=== PATIENT | female | born 1945 | race Caucasian/White ===

== ENCOUNTER 2020-03-05 07:24 | Outpatient (CLI) | payer MEDICARE, SELFPAY ==
--- NOTE | 2020-03-05 07:34 | MM_ITS ---
WS: [id number] BILATERAL DIGITAL SCREENING MAMMOGRAPHY WITH CAD CLINICAL INFORMATION: SCREENING HISTORY: Screening mammogram. Left breast soreness COMPARISON: TECHNIQUE: Bilateral CC and MLO views. FINDINGS: Scattered fibroglandular densities bilaterally. 11 mm increased asymmetric density mid depth right br east best seen on the CC view. RECOMMEND RIGHT DIAGNOSTIC MAMMOGRAPHY AND ULTRASOUND FOR FURTHER EVAL UATION. Left breast is unremarkable. Lucent centered calcifications. MM/[place] [id number] IMPRESSION: BI-RADS: 0-Incomplete: Need additional imaging evaluation FOLLOW UP: Need Additional Imaging
== END 2020-03-05 07:25 | disposition home or self-care (01) ==
PROVIDERS: PCP Internal Medicine; Visit Provider Internal Medicine
DX: Z12.31 Encounter for screening mammogram for malignant neoplasm of breast (principal); N64.89 Other specified disorders of breast
CPT/HCPCS: 77067

== ENCOUNTER 2020-03-24 14:24 | Outpatient (CLI) | payer MEDICARE, OTHER, SELFPAY ==
--- NOTE | 2020-03-24 14:34 | MM_ITS ---
WS: [id number] RIGHT DIGITAL MAMMOGRAPHY WITH CAD CLINICAL INFORMATION: ASYMMETRY COMPARISON: 03/05/2020 and 01/10/2019 TECHNIQUE: 3 views of the right breast were obtained. FINDINGS: Scattered fibroglandular densities of the right breast. Again seen is the 11 mm asymmetric density mi d depth right breast best seen on the cc view. Ultrasound is pending. ULTRASOUND BREAST RIGHT TECHNIQUE: Ultrasound right breast focused area of concern. CLINICAL INFORMATION: ASYMMETRY COMPARISON: None. FINDINGS: Ultrasound right breast the 12:00 position 3 cm from the nipple. There is a hypoechoic solid appearin g lesion which has a suspicious appearance. THIS MEASURES APPROXIMATELY 9.9 X 9.9 X 1.7 CM AND RECOMMEND FURTH ER EVALUATION WITH ULTRASOUND-GUIDED BIOPSY. Ultrasound right axilla. A few normal size lymph nodes. The largest lymph node measures 1.7 x 0.8 x 1 .3cm with normal cortex and preserved echogenic fatty hilum. No suspicious lymph nodes. MM/[place] [id number] IMPRESSION: BI-RADS: 4-Suspicious Finding-Biopsy Should Be Considered FOLLOW UP: US Guided Biopsy Recommended
== END 2020-03-24 14:25 | disposition home or self-care (01) ==
LOC: RADSHAW 14:24
PROVIDERS: PCP Internal Medicine; Visit Provider Internal Medicine
DX: N64.89 Other specified disorders of breast (principal)
CPT/HCPCS: 76642; 77065

== ENCOUNTER 2020-04-03 11:50 | Outpatient (CLI) | payer MEDICARE, OTHER, SELFPAY ==
--- NOTE | 2020-04-03 11:59 | US_ITS ---
WS: [id number] ULTRASOUND-GUIDED RIGHT BREAST BIOPSY HISTORY: ABNORMAL MAMMOGRAM COMPARISON: 03/24/2020 Procedure, risks and complications are explained to the patient. Medications are reviewed. Consent is obtained. The mass in the RIGHT breast is localized with ultrasound. Mass localized to 12:00, 3 cm from the nip ple. Skin is cleansed with ChloraPrep and anesthetized with 1% buffered lidocaine. Small dermatome is made. Under sterile conditions mass is biopsied with a 14-gauge Achieve needle. Multiple core biopsi es are performed. Material placed in formalin and sent to pathology for review. No complications enco untered. Breast tissue marker ([employer] ultrasound enhanced ribbon): Single. Patient left the radiology suite with no complications. Patient is instructed to return [place] [facility] with any concerns. US/[place] [id number] IMPRESSION: 1. Uncomplicated core needle biopsy RIGHT breast, 12:00. PATHOLOGY: Invasive intramammary carcinoma. Additional ancillary studies are be ing performed. Final diagnosis pending. RECOMMENDATION: Follow-up with Dr. Pardo, oncology and breast surgeon.
== END 2020-04-03 11:51 | disposition home or self-care (01) ==
LOC: RAD 11:55
PROVIDERS: PCP Internal Medicine; Visit Provider Internal Medicine
DX: R92.8 Other abnormal and inconclusive findings on diagnostic imaging of breast (principal); C50.811 Malignant neoplasm of overlapping sites of right female breast
CPT/HCPCS: 19083; 88305

== ENCOUNTER → 2020-04-20 08:15 | Outpatient (BNVA) | payer MEDICARE, OTHER, SELFPAY | PROVIDERS: PCP Internal Medicine; Visit Provider Surgery | DX: Z11.59 Encounter for screening for other viral diseases (principal) | CPT/HCPCS: 87635 ==

== ENCOUNTER 2020-04-24 07:28 | Day surgery (SDC) | payer MEDICARE, OTHER, SELFPAY ==
[2020-04-23 08:36] VITALS: BMI 42.3
--- NOTE | 2020-04-24 07:30 | NM_ITS ---
WS: [id number] SENTINEL NODE TECHNIQUE: Right breast sentinel node injection CLINICAL INFORMATION: BREAST LUMPECTOMY COMPARISON: None. PROCEDURE: The procedure including risks, benefits, and complications were discussed; the patient agr eed to proceed. Patient was prepped and draped in usual sterile fashion. Subsequently, 1% lidocaine p reservative-free was administered at the 12:00, 3:00, 6:00, and 9:00 o'clock positions for local anes thesia. Subsequently, 4 aliquots of filtered technetium 99m sulfur colloid was injected into the subc utaneous soft tissues. A total dose of 1.08 mCi was administered. Patient tolerated the procedure well with no immediate complications. RI/RI sentinel node inject [id number] IMPRESSION: Uncomplicated right breast sentinel node injection with a total dose of 1.08 mC i.
--- NOTE | 2020-04-24 07:51 | PC.NURSE ---
pt stated david hose and scd hurt her legs. foot pumps used. dr Giang aware
--- NOTE | 2020-04-24 08:06 | ANES.PREANE2 ---
Pre-Anesthetic Assessment Pre-Anesthetic Assessment: Height/Weight: Height 1.7 m Weight 122.47 kg Proposed Procedure: Operation Date: 04/24/20 10:00 Proposed Procedures p Sentinal Lymph Node Biopsy(Right) - Everton Giang MD Was Beta Nikki taken within 24 hours: Yes Last intake: Intake Last Liquid Date 04/24/20 Last Liquid Time 23:00 Last Solid Date 04/23/20 Last Solid Time 23:00 Social: Social History: No alcohol and No tobacco Exam: Pre-Anes Outpt Exam: alert, oriented x 3, clear to auscultation bilaterally and regular rate & rhythm Airway: Submandibular: WNL Cervical ROM: WNL MP: 2 Dentition: Full History/ROS: No significant history except as noted and No significant complaints Pulmonary: Pulmonary: None reported CV/HEM: CV/HEM: HTN : : None reported Hepatic: Hepatic: None reported GI: GI: None reported Metabolic: Metabolic: DM and Morbid obesity Musc/skel: Musc/skel: OA/DJD Anesthetic Plan: ASA status: 2 Anesthesia: Anesthesia Evaluation and MAC Risk of > 500 ml blood loss (7ml/kg in children): No Data Anesthesia Cardiac Studies: No Data to Display
[2020-04-24 08:07] LABS: Glucose Point of Care 105 mg/dL (70-110)
--- NOTE | 2020-04-24 08:14 | W.PM.OPSUD ---
Surgery/Procedure H&P Update DATE OF PROCEDURE: April 24, 2020 DATE H&P PERFORMED: 04/15/20 H&P UPDATE INFORMATION: No changes to prior documentation PREOP DIAGNOSIS: Right breast cancer. PLANNED PROCEDURE: Operation Date: 04/24/20 10:00 Proposed Procedures p Sentinal Lymph Node Biopsy(Right) - Everton Giang MD Right breast lumpectomy
[2020-04-24 09:30] VITALS: BP 208/108; PULSE 94; RESP 18; TEMP 37.2; O2SAT 94
--- NOTE | 2020-04-24 09:50 | P.OP_ITS ---
Operative Report Date of procedure: April 24, 2020 Pre-op Diagnosis: Right breast cancer. Post-op diagnosis: same Procedure Done: 1. Right axillary sentinel lymph node biopsy. 2. Right breast lumpectomy. Specimens removed/disposition: 1. Right axillary sentinel lymph node(s). 2. Right breast lumpectomy specimen. Long suture anteriorly, short suture medially. Surgeon: Everton Giang Anesthesia: MAC Estimated blood loss (mL): 5 Complications: None. Condition: stable Disposition: same day Procedure: The patient was brought to the operating room and was placed in a supine position on the operating room table. The patient had undergone radioactive tracer injection in radiology preoperatively. A monitored anesthetic was induced. The right axilla and breast prepped and draped in a sterile fashion. The gamma probe was used to find the hot spot in the axilla inferiorly and somewhat anteriorly. A combination of 1% lidocaine and 0.5% bupivacaine with 1- 200,000 parts epinephrine was used for local anesthesia throughout the procedures. A curvilinear incision was carried out over the hot spot of the axilla. Cautery and blunt dissection were used to traverse the subcutaneous tissue and the axilla was entered. Using a combination of inspection and the gamma probe, the hot lymph node was found and was completely removed using blunt dissection and cautery. There may have been more than 1 small lymph node matted together in the specimen that was excised. The lymph node package registered counts of 13 on the field. Further inspection of the axilla with the gamma probe revealed counts only associated with the apparent lymphatic channels that came up to the lymph node package that was removed. No other lymph nodes were palpated or identified with the gamma probe. The wound was irrigated with saline. A suture of 3-0 Vicryl was used to bring the deeper tissue together and the skin was approximated using a running subcuticular suture of 4-0 Vicryl. Attention was then directed to the right breast where the patient had a small palpable mass at the 11:30 axis about 3 cm from the edge of the areola. A transverse incision was made and a combination of cautery and sharp dissection were used to remove the mass with surrounding breast tissue. A long suture was placed on the specimen anteriorly and a short suture was placed medially for pat hologic orientation. The wound was irrigated with saline and some small bleeding points were controlled with cautery. Benzoin and Steri-Strips were placed over the wounds and sterile bandages follow ed. The patient was taken to the outpatient recovery area in stable condition postoperatively.
[2020-04-24 10:11] VITALS: BP 99/84; PULSE 81; RESP 18; TEMP 36.4; O2SAT 94
[2020-04-24 10:14] VITALS: BP 117/62; PULSE 73; RESP 18; O2SAT 95
[2020-04-24] MEDS: sodium chloride 0.9% 1,000 ML 30 ML IV (10:15)
[2020-04-24] MEDS: HYDROcodone-acetaminophen 5-325 mg Tablet 1 TAB PO (10:56)
--- NOTE | 2020-04-24 11:05 | ANE.PACU2 ---
Inpatient post-anesthesia follow up: Airway intact: Yes Vital signs: Temperature 97.5 F Pulse Rate 73 Respiratory Rate 18 Blood Pressure 117/62 Pulse Oximetry 95 Oxygen Delivery Me thod Room Air Oxygen Flow Rate Fraction of Inspir ed Oxygen Hydration adequate: Yes Nausea and vomiting: No Pain level: 1 Mental status: Baseline
== END 2020-04-24 11:05 | disposition home or self-care (01) ==
PROVIDERS: PCP Internal Medicine; Visit Provider Surgery
PROC: (CPT 19301; principal; 2020-04-24 10:00)
PROC: (CPT 19301; 2020-04-24 10:00)
DX: C50.911 Malignant neoplasm of unspecified site of right female breast (principal); I10 Essential (primary) hypertension; E11.9 Type 2 diabetes mellitus without complications; E66.01 Morbid (severe) obesity due to excess calories; Z68.41 Body mass index [BMI] 40.0-44.9, adult; M19.90 Unspecified osteoarthritis, unspecified site
CPT/HCPCS: 19301; 38525; 12345; 36416; 38792; 82962; 88305; A9541; J0690; J2250; J2405; J2704; J3010; J3490; J7030

== ENCOUNTER 2020-05-12 12:58 | Outpatient (CLI) | payer MEDICARE, OTHER, SELFPAY ==
--- NOTE | 2020-05-12 18:30 | ONC CON_ITS ---
Dr. Dobbins New Patient Note Patient: Darby Rajan Unit #: [id number]: 1945 Dicatated By: Carlos Dobbins M.D.Date of Visit: May 12, 2020 Onc MED New Patient/Consult Referring Physician: Dr. Everton Giang M.D. Chief Complaint: Breast cancer. 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 This patient has hypertension and type 2 diabetes. She has severe degenerative arthritis of her knees. She had a screening mammogram on 03/05/2020. At that time she was having some sharp pain in the left breast. The mammogram was BI-RADS 0 with evidence of an 11 mm asymmetric density in the mid depth right breast, increased compared to a prior study from January 2019. Diagnostic right breast mammogram and ultrasound on 03/24/2020 was BI-RADS 4, suspicious. Ultrasound findings included a hypoechoic, solid-appearing lesion at the 12 o'clock position measuring 9.9 x 9.9 x 1.7 cm. A few normal-sized lymph nodes were noted in the right axilla, the largest measuring 1.7 x 0.8 x 1.3 cm with normal cortex and preserved echogenic fatty hilum. There are no suspicious lymph nodes identified. Ultrasound-guided core needle biopsy of the right breast mass on 04/03/2020 showed grade 3 invasive ductal carcinoma. The breast prognostic profile showed ER positive at 90% and MI positive at 90%. The tumor is negative for overexpression of HER-2/brianna, 2+ by IHC and amplification ratio by FISH of 1.3 with 2.9 HER-2 copies/cell. The Ki-67 was unfavorable at 45%. On 04/24/2020 she underwent right breast lumpectomy with axillary sentinel lymph node biopsy. Pathology showed a single focus of grade 3 invasive ductal carcinoma measuring 1.5 cm in maximum dimension. The margins were uninvolved with the closest being the posterior margin at 0.4 cm. Pathologic staging was pT1c, pN0. She is seen now for further management. She has been feeling pretty good generally. She does have limited activity due to her knee pain, and she also complained that she feels tired because the knee pain interferes with her sleep at night. Her ECOG score is 1. She has good appetite, and her weight is stable. She does not have fever or night sweats. Recently she has been having some hot flashes. She is sometimes short of breath with activity. She has just occasional cough. She does not complain of chest pain. She has a longstanding history of nausea, typically postprandial. She sometimes has acid reflux. Recently she has had quite a bit of diarrhea, that she attributes to being nervous. She sometimes has pain in the lower abdomen. Her bladder function has been okay. She does not have any other joint or bone pain. She sometimes has headache. She has no focal neurologic symptoms. Past Medical History: Her medical history includes anxiety, degenerative arthritis, hypertension, type II diabetes, and vitamin D deficiency. Past Surgical History: She underwent ultrasound guided core needle biopsy of right breast mass on 04/03/2020. She underwent right breast lumpectomy with axillary sentinel lymph node biopsy on 04/24/2020. Her other surgical/procedural history includes appendectomy, arthroscopic left knee surgery, hysterectomy/bilateral salpingectomy-oophorectomy, rectocele repair, right breast lumpectomy for benign disease, laparoscopic lysis of adhesions and repair of incisional hernia with mesh in 2018, exploratory laparotomy with adhesiolysis, segmental small bowel resection, and incisional hernia repair in 2005, and lysis of adhesion/partial small bowel resection in 1989. Medications: Aspirin 1 Tablet (of 81 mg) Tablet, enteric coated Oral daily, Losartan Potassium 1 Tablet (of 50 mg) Oral daily, Meloxicam 1 Tablet (of 15 mg) Oral daily, metFORMIN HCl 1 Tablet (of 500 mg) Oral b.i.d., Triamterene-HCTZ 1 Tablet (of 37.5-25 mg) Oral daily, Vitamin D3 1 Tablet (of 25 mcg) Oral daily Allergies: Iodine and Shellfish. Social History: Ms. Rajan is and she is retired. She is a non-smoker. She does not drink alcohol. Family History: Father of heart disease at age 72. Mother at age 87 with complications of dementia. One brother and one sister are in good health. There is no history of breast cancer or ovarian cancer in the family. Review Of Symptoms: Constitutional - She has been feeling pretty good generally, though she does complain that she is tired because she does not sleep well. Her appetite is good and her weight is stable. She has not had fever or night sweats. Recently she has had some hot flashes. ECOG score is 1, Eyes - No recent change in vision, but she is being followed for a cataract in her right eye, ENMT - No hearing loss or tinnitus. She has sinus drainage off and on. No mouth sores. No sore throat or difficulty swallowing, Hematologic/Lymphatic - She has some bruising, Respiratory - She is sometimes short of breath with activity. She has just occasional cough. No pleuritic pain or hemoptysis, Cardiovascular - No angina pain. No palpitations, Gastrointestinal - She has a longstanding history of nausea, mainly after eating. She sometimes has acid reflux. Recently she has had quite a bit of diarrhea, attributable to being nervous. She sometimes has pain in the lower abdomen. No blood in the stool or black stools, Genitourinary (F) - No dysuria or hematuria. No urinary frequency. No urgency or incontinence, Musculoskeletal - She has chronic pain in her knees, which significantly limits her activity, Integumentary - No skin rash, Neurologic - She sometimes has headache. No dizziness. No numbness or tingling. No other focal neurologic symptoms, Psychiatric - She has having some anxiety. She does not sleep well due to knee pain. Vital Signs: Performed on May 12, 2020 14:14: 0, 42.85 (HIGH), 2.31 sq.m, 67.00 in, 95 % (LOW), 84 /min, 24 /min, 168/86 mm(hg) (HIGH), 99.0 F (HIGH), and 273.6 lbs (HIGH). Physical Examination: Constitutional - She appears to be in reasonably good general health, Eyes - Sclerae nonicteric. Conjunctivae clear, ENMT - No lesions noted in the oral cavity, Neck - No mass or thyromegaly, Hematologic/Lymphatic - No cervical or clavicular adenopathy, Respiratory - Lungs are clear with good air movement bilaterally, Cardiovascular - Heart rhythm is regular. There is no murmur, gallop, or rub noted, Breasts - There is slight induration at the lumpectomy site in the upper right breast. There is no mass palpable. The left breast shows no mass. There is no axillary adenopathy noted, Abdomen - Distended. Liver and spleen are not enlarged. There is no abdominal mass or ascites noted and there is no inguinal adenopathy, Back/Spine - No spine or CVA tenderness noted, Extremities - Slight edema. Dorsalis pedis pulses are palpable bilaterally, Integumentary - No rashes. No suspicious skin lesions noted, Neurologic - No focal neurologic deficits noted. Impression: 1. Patient with grade 3 infiltrating ductal carcinoma of the right breast, stage IB (T1c, pN0, M0), ER/MI positive and HER-2/brianna negative. 2. She underwent right breast lumpectomy sentinel lymph node biopsy on 04/24/2020. Surgical margins were uninvolved. Her other medical illnesses include: 3. Hypertension. 4. Type 2 diabetes. 5. Degenerative arthritis. 6. Vitamin D deficiency. 7. Chronic anxiety. Plan: The pathology findings were reviewed with the patient and we discussed the clinic complications. She has early stage infiltrating ductal carcinoma of the right breast. She is aware that she will need to undergo radiation to the right breast to complete her local treatment. We discussed the fact that she also will require systemic adjuvant therapy, which will include adjuvant hormonal therapy. With a grade 3, T1c primary tumor she also may potentially benefit with adjuvant chemotherapy. As such, I will request further evaluation with Oncotype DX. I will plan further discussion of systemic adjuvant therapy when those results are available. Signed By: Carlos Dobbins M.D. <<Signature on File>>
== END 2020-05-12 12:59 | disposition home or self-care (01) ==
LOC: ONCMED 13:06
PROVIDERS: PCP Internal Medicine; Visit Provider Internal Medicine Medical Oncology
DX: C50.811 Malignant neoplasm of overlapping sites of right female breast (principal); Z17.0 Estrogen receptor positive status [ER+]; I10 Essential (primary) hypertension; E11.9 Type 2 diabetes mellitus without complications; M19.90 Unspecified osteoarthritis, unspecified site; E55.9 Vitamin D deficiency, unspecified; F41.9 Anxiety disorder, unspecified; Z79.818 Long term (current) use of other agents affecting estrogen receptors and estrogen levels; Z79.899 Other long term (current) drug therapy
CPT/HCPCS: 99205

== ENCOUNTER 2020-05-26 16:09 | Outpatient (CLI) | payer MEDICARE, OTHER, SELFPAY ==
--- NOTE | 2020-05-26 18:18 | ONC FU_ITS ---
Dr. Dobbins Patient Follow-Up Note Patient: Darby Rajan Unit #: [id number]: 1945 Dicatated By: Carlos Dobbins M.D.Date of Visit:May 26, 2020 Onc Med Follow-up/Prog Note Chief Complaint: Breast cancer. History of Present Illness: This is a 74 year-old woman with grade 3 infiltrating ductal carcinoma of the right breast, stage IB (T1c, pN0, M0), ER/NE positive and HER-2/brianna negative. She had a screening mammogram on 03/05/2020. At that time she was having some sharp pain in the left breast. The mammogram was BI-RADS 0 with evidence of an 11 mm asymmetric density in the mid depth right breast, increased compared to a prior study from January 2019. Diagnostic right breast mammogram and ultrasound on 03/24/2020 was BI-RADS 4, suspicious. Ultrasound findings included a hypoechoic, solid-appearing lesion at the 12 o'clock position measuring 9.9 x 9.9 x 1.7 cm. A few normal-sized lymph nodes were noted in the right axilla, the largest measuring 1.7 x 0.8 x 1.3 cm with normal cortex and preserved echogenic fatty hilum. There are no suspicious lymph nodes identified. Ultrasound-guided core needle biopsy of the right breast mass on 04/03/2020 showed grade 3 invasive ductal carcinoma. The breast prognostic profile showed ER positive at 90% and NE positive at 90%. The tumor is negative for overexpression of HER-2/brianna, 2+ by IHC and amplification ratio by FISH of 1.3 with 2.9 HER-2 copies/cell. The Ki-67 was unfavorable at 45%. On 04/24/2020 she underwent right breast lumpectomy with axillary sentinel lymph node biopsy. Pathology showed a single focus of grade 3 invasive ductal carcinoma measuring 1.5 cm in maximum dimension. The margins were uninvolved with the closest being the posterior margin at 0.4 cm. Pathologic staging was pT1c, pN0. I had seen her initially on 05/12/2020. With an ER/NE positive T1c primary tumor and negative axillary sentinel lymph node biopsy, I had recommended further evaluation with Oncotype DX to direct recommendations for her systemic adjuvant therapy. Her other medical illnesses include hypertension and type 2 diabetes. She has severe degenerative arthritis of her knees. She has a history of vitamin D deficiency, and she also has chronic anxiety. She is a non-smoker. She returns today to discuss the results of the Oncotype DX. It showed a recurrence score of 34, which is high risk category, corresponding to a 22% risk of distant recurrence at 9 years with adjuvant hormonal therapy alone. The estimated absolute benefit with addition of adjuvant chemotherapy was greater than 15%. Medications: Aspirin 1 Tablet (of 81 mg) Tablet, enteric coated Oral daily, Losartan Potassium 1 Tablet (of 50 mg) Oral daily, Meloxicam 1 Tablet (of 15 mg) Oral daily, metFORMIN HCl 1 Tablet (of 500 mg) Oral b.i.d., traMADol HCl 1 Tablet (of 50 mg) Oral daily, Triamterene-HCTZ 1 Tablet (of 37.5-25 mg) Oral daily, Vitamin D3 1 Tablet (of 25 mcg) Oral daily Allergies: Iodine and Shellfish. Vital Signs: Performed on May 26, 2020 16:35 Height - 67.00 in Weight - 277.0 lbs (HIGH) BSA - 2.32 sq.m BMI - 43.38 (HIGH) Temperature - 98.6 F Pulse - 71 /min Respiration - 24 /min BP - 144/88 mm(hg) (HIGH) O2 Sat - 99 % Pain - 6 Impression: 1. Patient with grade 3 infiltrating ductal carcinoma of the right breast, stage IB (T1c, pN0, M0), ER/NE positive and HER-2/brianna negative. Her Oncotype DX was high risk, with recurrence score of 34 corresponding to a 22% risk of distant recurrence at 9 years with adjuvant hormonal therapy alone. The absolute benefit with addition of adjuvant chemotherapy is estimated to be greater than 15%. 2. She underwent right breast lumpectomy sentinel lymph node biopsy on 04/24/2020. Surgical margins were uninvolved. Her other medical illnesses include: 3. Hypertension. 4. Type 2 diabetes. 5. Degenerative arthritis. 6. Vitamin D deficiency. 7. Chronic anxiety. Plan: The Oncotype DX results were reviewed with the patient and her . We discussed the clinic complications. She is in a high risk category with estimated 22% risk of distant recurrence at 9 years with adjuvant hormonal therapy alone. In this situation adjuvant chemotherapy is recommended, as it is predicted to have an absolute benefit of greater than 15%. With her having diabetes and already having some neuropathy symptoms, I will recommend treatment with 4 cycles of Adriamycin/cyclophosphamide as opposed to the cyclophosphamide/Taxotere regimen. I reviewed anticipated side effects which may include nausea/vomiting, alopecia, fatigue, low blood counts, and cardiomyopathy, among others. She is going to discuss this further with her family, and she will make a decision about adjuvant chemotherapy by next week. If she does opt for treatment, she will need to undergo placement of Port-A-Cath venous access device, and she will need pretreatment cardiac screen. If she decides not to take chemotherapy, she can proceed with radiation oncology consultation. [id number] time with patient was more than 30 minutes, greater than 50% spent in counseling/discussion. Signed By: Carlos Dobbins M.D. <<Signature on File>>
== END 2020-05-26 16:10 | disposition home or self-care (01) ==
LOC: ONCMED 16:12
PROVIDERS: PCP Internal Medicine; Visit Provider Internal Medicine Medical Oncology
DX: C50.811 Malignant neoplasm of overlapping sites of right female breast (principal); Z17.0 Estrogen receptor positive status [ER+]; I10 Essential (primary) hypertension; E11.9 Type 2 diabetes mellitus without complications; M19.90 Unspecified osteoarthritis, unspecified site; E55.9 Vitamin D deficiency, unspecified; F41.9 Anxiety disorder, unspecified; Z79.818 Long term (current) use of other agents affecting estrogen receptors and estrogen levels; Z79.899 Other long term (current) drug therapy
CPT/HCPCS: 99214

== ENCOUNTER 2020-07-03 05:45 | Outpatient (RCR) | payer MEDICARE, OTHER, SELFPAY ==
--- NOTE | 2020-06-11 09:59 | N.ONRAD NP_ITS ---
Radiation Oncology Consult Patient: Darby Rajan MR#: [id number] : 1945 Attending Physician: Jonathan Palma M.D. Date of Service: 06/11/2020 Darby Rajan was seen in consultation this morning for evaluation regarding potential breast radiotherapy for the management of her early stage breast cancer. She presented for routine screening mammography ordered on March 05, 2020. A 1.1 cm asymmetric density was noted in the right breast. A diagnostic mammogram pleated on March 24, 2020 confirmed the asymmetric density right breast. Ultrasonography revealed within the right breast at the 12 o'clock position, 3 cm from the nipple, a 9 mm x 9 mm x 1.7 cm hypoechoic lesion. An ultrasound-guided biopsy obtained on April 03, 2020 diagnosed a need III invasive ductal carcinoma. Immunohistochemical stains were positive for estrogen receptor (90%) and progesterone receptor (90%) while negative for HER-2. The KI-67 was 45%. A right partial mastectomy with sentinel lymph node biopsy was performed by Delgado Giang M.D. on April 24, 2020. A 1.5 cm grade 3 ductal carcinoma was present. A sentinel lymph node biopsy harvested four lymph nodes that were negative for malignancy. All surgical margins were negative. The OncotypeDX Recurrence Score of the tumor was 34. The patient presents for discussion regarding adjuvant breast radiotherapy. The patient's past medical history is significant for anxiety, diverticulosis, hemorrhoids, hypercholesterolemia, hypertension, nmr-uxijxwj-[id number] diabetes mellitus, osteoarthritis, and vitamin D deficiency. Her past surgical history includes appendectomy, arthroscopy (left knee), breast biopsy (right), herniorrhaphy, laparoscopic adhesiolysis, partial mastectomy with sentinel lymph node biopsy (right), rectocele repair, small bowel resection, and total abdominal hysterectomy with bilateral salpingo-oophorectomy. Her obstetrical history is . Menses began between ages 12 and menopause following hysterectomy at the age of 41. I have reviewed the patient's medication profile which is available in the electronic medical record. She described a contrast dye allergy (iodine) and shellfish. The patient's family history was unremarkable for breast cancer. The patient was unaccompanied to this consultation. She denied a tobacco habit and disavowed alcohol intake. On review of systems, she did not report any constitutional complaints including fevers of unknown origin or unintentional weight loss. There were no head neck complaints including diplopia, tinnitus, epistaxis, or dysphagia. She did not report breast complaints such as masses or nipple discharge nor any enlarged lymph nodes of the neck, armpit, or groin. She denied any cardiopulmonary symptoms such as angina, cough, or palpitations. On gastrointestinal review, she reported dyspepsia but no nausea or diarrhea. There were no genitourinary complaints such as dysuria or hematuria. She did not report any musculoskeletal complaints including bone pain or muscle weakness. There were no neurological symptoms such as headaches, paresthesias, or seizures. On physical examination, the patient has an ECOG performance status of 2. Her weight was 276 lbs. The temperature was 98.4???F. The blood pressure was 151/80 mmHg. The pulse was 76 bpm and the respiratory rate of was 20. The head was normocephalic and atraumatic. Ophthalmoscopy identified bilateral red reflexes with sharp fundi visualized. Otoscopy revealed bilateral light reflexes upon tympanic membranes. Rhinoscopy exhibited non-nflamed turbinates. The oral cavity had moist mucous membranes and no oropharyngeal exudate was present. Poor dentition was noted. There was no cervical adenopathy or thyromegaly. No dominant breast masses were palpated. A scar was present in the upper right breast. There was no palpable axillary adenopathy. Normal fremitus was noted with resonance to percussion elicited. Bronchovesicular breath sounds were auscultated in the posterior lung starks. Cardiac sounds were regular in rate and rhythm. No auscultated gallops or murmurs present. No JVD noted. The abdomen had active bowel sounds. No tenderness to palpation. No evidence of organomegaly. No muscle weakness upon testing. No tenderness to deep palpation along the axial skeleton. Cranial nerves II through XII were intact. No sensory deficits. Hyporeflexia noted. Gait was slow secondary to bilateral OA of the knees requiring a cane. In summary, the patient presented for routine screening mammography ordered on March 05, 2020. A 1.1 cm asymmetric density was noted in the right breast. A diagnostic mammogram pleated on March 24, 2020 confirmed the asymmetric density right breast. Ultrasonography revealed within the right breast at the 12 o'clock position, 3 cm from the nipple, a 9 mm x 9 mm x 1.7 cm hypoechoic lesion. An ultrasound-guided biopsy obtained on April 03, 2020 diagnosed a need III invasive ductal carcinoma. Immunohistochemical stains were positive for estrogen receptor (90%) and progesterone receptor (90%) while negative for HER-2. The KI-67 was 45%. A right partial mastectomy with sentinel lymph node biopsy was performed by Delgado Giang M.D. on April 24, 2020. A 1.5 cm grade 3 ductal carcinoma was present. A sentinel lymph node biopsy harvested four lymph nodes that were negative for malignancy. All surgical margins were negative. The OncotypeDX Recurrence Score of the tumor was 34. The patient presents for discussion regarding adjuvant breast radiotherapy. I reviewed with the patient her AJCC pathological stage IA (T1cN0) breast cancer. I also discussed the classic study by the NSABP comparing mastectomy, lumpectomy, and lumpectomy with radiotherapy and the Early Breast Cancer Trial[employer] meta-analysis. She is aware that the addition of radiotherapy to lumpectomy provides improvement in local control and overall survival. I anticipate a 3 week course of hypofractionated radiotherapy which will be implemented following CT radiotherapy treatment planning. Toxicities of breast radiotherapy were also addressed. The patient has verbalized understanding and would like to proceed as recommended. Signed by: Dr. Jonathan Palma 06/11/2020 9:58:28 AM
--- NOTE | 2020-06-12 | CT_ITS ---
Radiation Therapy Planning CT images; total exam DLP: 1008.48 mGy-cm MTDD
--- NOTE | 2020-06-16 11:05 | ONCRAD TMN_ITS ---
Radiation Oncology Weekly Treatment Management Patient: Darby Rajan MR#: [id number] : 1945 Attending Physician: Jonathan Palma M.D. Date of Service: 06/16/2020 Referring Physician(s): Dr. Everton Giang Darby Rajan is a 74 year-old white female diagnosed with a pathological stage IA (T1cN0) invasive ductal carcinoma (colloid) of the central portion of the right breast. Immunohistochemical staining were positive for estrogen receptor and progesterone receptor while negative for HER2. She has received 2.7 Gy of a prescribed 40 Gy delivered with a 3D conformal radiotherapy plan utilizing opposed tangential portal starks with a zpnle-dx-akhuw treatment technique. Upon review of systems, she denied any breast complaints to radiotherapy. On physical examination, the patient weighed 241 lbs. Her temperature was 96.3 ???F with a blood pressure of 127/91 mmHg. Her pulse was 90 bpm and her respiratory rate was 18. There was no erythema within the treatment starks of the right breast. Continue hypofractionated breast radiotherapy as planned. Signed by: Dr. Jonathan Palma 06/16/2020 11:03:34 AM
--- NOTE | 2020-06-24 10:48 | ONCRAD TMN_ITS ---
Radiation Oncology Weekly Treatment Management Patient: Darby Rajan MR#: [id number] : 1945 Attending Physician: Jonathan Palma M.D. Date of Service: 06/24/2020 Referring Physician: Dr. Everton Giang Darby Rajan is a 74 year-old white female diagnosed with a pathological stage IA (T1cN0) invasive ductal carcinoma (colloid) of the central portion of the right breast. Immunohistochemical staining were positive for estrogen receptor and progesterone receptor while negative for HER2. She has received 16 Gy of a prescribed 40 Gy delivered with a 3D conformal radiotherapy plan utilizing opposed tangential portal starks with a ubzux-us-auakp treatment technique. Upon review of systems, she denied any breast complaints to radiotherapy. On physical examination, the patient weighed 276 lbs. Her temperature was 98.8 ???F with a blood pressure of 138/79 mmHg. Her pulse was 79 bpm and her respiratory rate was 20. There was no erythema within the treatment starks of the right breast. Continue hypofractionated breast radiotherapy as prescribed. Signed by: Dr. Jonathan Palma 06/24/2020 10:46:17 AM
--- NOTE | 2020-06-30 11:25 | ONCRAD TMN_ITS ---
Radiation Oncology Weekly Treatment Management Patient: Darby Rajan MR#: [id number] : 1945 Attending Physician: Jonathan Palma M.D. Date of Service: 06/30/2020 Referring Physician: Dr. Everton Giang Darby Rajan is a 74 year-old white female diagnosed with a pathological stage IA (T1cN0) invasive ductal carcinoma (colloid) of the central portion of the right breast. Immunohistochemical staining were positive for estrogen receptor and progesterone receptor while negative for HER2. She has received 21.3 Gy of a prescribed 40 Gy delivered with a 3D conformal radiotherapy plan utilizing opposed tangential portal starks with a ijqqf-kq-kdtvf treatment technique. Upon review of systems, she denied any breast complaints to radiotherapy. On physical examination, the patient weighed 279 lbs. Her temperature was 97.9 ???F with a blood pressure of 185/89 mmHg. Her pulse was 72 bpm and her respiratory rate was 20. There was no erythema within the treatment starks of the right breast. Continue hypofractionated right breast radiotherapy as planned. Signed by: Dr. Jonathan Palma 06/30/2020 11:24:37 AM
== END 2020-07-03 23:59 | disposition home or self-care (01) ==
LOC: ONCMED 05:45
PROVIDERS: PCP Internal Medicine; Visit Provider Radiology Radiation Oncology
DX: Z51.0 Encounter for antineoplastic radiation therapy (principal); C50.111 Malignant neoplasm of central portion of right female breast; Z17.0 Estrogen receptor positive status [ER+]; F41.9 Anxiety disorder, unspecified; I10 Essential (primary) hypertension; E11.9 Type 2 diabetes mellitus without complications; M19.90 Unspecified osteoarthritis, unspecified site; E55.9 Vitamin D deficiency, unspecified; E78.5 Hyperlipidemia, unspecified
CPT/HCPCS: 77280; 77295; 77300; 77334; 77336; 77387; 77412; 99204

== ENCOUNTER 2020-07-25 06:02 | Outpatient (RCR) | payer MEDICARE, OTHER, SELFPAY ==
--- NOTE | 2020-07-07 10:55 | ONCRAD TMN_ITS ---
Radiation OncologyTreatment Management Note Patient Name: Darby Rajan Date of : 1945 Date of Service: 07/07/2020 Attending Physician: Jonathan Palma M.D. Darby Rajan is a 74 year-old white female diagnosed with a pathological stage IA (T1cN0) invasive ductal carcinoma (colloid) of the central portion of the right breast. Immunohistochemical staining were positive for estrogen receptor and progesterone receptor while negative for HER2. She has received 32 Gy of a prescribed 40 Gy delivered with a 3D conformal radiotherapy plan utilizing opposed tangential portal starks with a vrthi-ck-gcgkq treatment technique. Upon review of systems, she reported burning within the right armpit. On physical examination, the patient weighed 279 lbs. Her temperature was 97.9 ???F with a blood pressure of 185/89 mmHg. Her pulse was 72 bpm and her respiratory rate was 20. There was a grade I dermatitis within the treatment starks of the right breast. Continue hypofractionated right breast radiotherapy as prescribed. I would recommend Solarcaine to the right axilla. Signed by: Dr. Jonathan Palma 07/07/2020 10:53:20 AM
--- NOTE | 2020-07-20 09:48 | ONC FU_ITS ---
Dr. Dobbins Patient Follow-Up Note Patient: Darby Rajan Unit #: [id number]: 1945 Dicatated By: Carlos Dobbins M.D.Date of Visit:Jul 17, 2020 Onc Med Follow-up/Prog Note Chief Complaint: Breast cancer. History of Present Illness: This is a 75 year-old woman with grade 3 infiltrating ductal carcinoma of the right breast, stage IB (T1c, pN0, M0), ER/IN positive and HER-2/brianna negative. She had a screening mammogram on 03/05/2020. At that time she was having some sharp pain in the left breast. The mammogram was BI-RADS 0 with evidence of an 11 mm asymmetric density in the mid depth right breast, increased compared to a prior study from January 2019. Diagnostic right breast mammogram and ultrasound on 03/24/2020 was BI-RADS 4, suspicious. Ultrasound findings included a hypoechoic, solid-appearing lesion at the 12 o'clock position measuring 9.9 x 9.9 x 1.7 cm. A few normal-sized lymph nodes were noted in the right axilla, the largest measuring 1.7 x 0.8 x 1.3 cm with normal cortex and preserved echogenic fatty hilum. There are no suspicious lymph nodes identified. Ultrasound-guided core needle biopsy of the right breast mass on 04/03/2020 showed grade 3 invasive ductal carcinoma. The breast prognostic profile showed ER positive at 90% and IN positive at 90%. The tumor is negative for overexpression of HER-2/brianna, 2+ by IHC and amplification ratio by FISH of 1.3 with 2.9 HER-2 copies/cell. The Ki-67 was unfavorable at 45%. On 04/24/2020 she underwent right breast lumpectomy with axillary sentinel lymph node biopsy. Pathology showed a single focus of grade 3 invasive ductal carcinoma measuring 1.5 cm in maximum dimension. The margins were uninvolved with the closest being the posterior margin at 0.4 cm. Pathologic staging was pT1c, pN0. I had seen her initially on 05/12/2020. With an ER/IN positive T1c primary tumor and negative axillary sentinel lymph node biopsy, I had recommended further evaluation with Oncotype DX. It showed a recurrence score of 34, which was high risk category, corresponding to a 22% risk of distant recurrence at 9 years with adjuvant hormonal therapy alone. The estimated absolute benefit with addition of adjuvant chemotherapy was greater than 15%. I had a lengthy discussion with her regarding the Oncotype results, as with those findings she was recommended to have adjuvant chemotherapy. However, she declined treatment. She was then seen by Dr. Palma for radiation oncology consultation and she underwent radiation to the right breast, completed on 07/10/2020 to a total dose of 4000 cGy administered in 15 fractions. Her other medical illnesses include hypertension and type 2 diabetes. She has severe degenerative arthritis of her knees. She has a history of vitamin D deficiency, and she also has chronic anxiety. She is a non-smoker. She is seen for a followup visit. She is still having soreness in her breast and axillary area following the radiation. She says she does not have a lot of energy. She is able to do light work as long as she can rest. ECOG score is 1. She has good appetite. She has not had fever. She does have some hot flashes, but not bad. She has shortness of breath if she walks too far. She does not have cough and she does not complain of chest pain. She has been having a little bit of acid reflux. She has no other GI or complaints. She says her shoulder pain is not as bad now, she does have significant pain in both knees. She does not complain of headache, and she has no focal neurologic symptoms. Medications: Aspirin 1 Tablet (of 81 mg) Tablet, enteric coated Oral daily, Losartan Potassium 1 Tablet (of 50 mg) Oral daily, Meloxicam 1 Tablet (of 15 mg) Oral daily, metFORMIN HCl 1 Tablet (of 500 mg) Tablet Oral b.i.d., traMADol HCl 1 Tablet (of 50 mg) Oral daily, Triamterene-HCTZ 1 Tablet (of 37.5-25 mg) Oral daily, Vitamin D3 1 Tablet (of 25 mcg) Oral daily Allergies: Iodine and Shellfish. Vital Signs: Performed on Jul 17, 2020 08:11 Height - 67.00 in Weight - 278.6 lbs (HIGH) BSA - 2.33 sq.m BMI - 43.64 (HIGH) Temperature - 96.8 F (LOW) Pulse - 87 /min Respiration - 20 /min BP - 131/65 mm(hg) O2 Sat - 97 % Pain - 8 Fatigue - 5 Physical Examination: Constitutional - She looks pretty good generally, Eyes - Sclerae nonicteric. Conjunctivae clear, ENMT - No lesions noted in the oral cavity, Hematologic/Lymphatic - No cervical, clavicular, or axillary adenopathy, Respiratory - Lungs are clear with good air movement bilaterally, Cardiovascular - Heart rhythm is regular. There is no murmur, gallop, or rub noted, Abdomen - Distended. Liver and spleen are not enlarged. There is no abdominal mass or ascites noted and there is no inguinal adenopathy, Extremities - No edema, Neurologic - No focal neurologic deficits noted. Historic Problem List: 1. Grade 3 infiltrating ductal carcinoma of the right breast, stage IB (T1c, pN0, M0), ER/IN positive and HER-2/brianna negative. Her Oncotype DX was high risk, but she declined adjuvant chemotherapy. 2. She underwent right breast lumpectomy and sentinel lymph node biopsy on 04/24/2020. She completed radiation to the right breast on 07/10/2020, total dose of 4000 cGy administered in 15 fractions. 3. Hypertension. 4. Type 2 diabetes. 5. Degenerative arthritis. 6. Vitamin D deficiency. 7. Chronic anxiety. Problems Addressed with this Encounter and Plan: 1. Grade 3 infiltrating ductal carcinoma of the right breast, stage IB (T1c, pN0, M0), ER/IN positive and HER-2/brianna negative. Her Oncotype DX was high risk, but she declined adjuvant chemotherapy. Her treatment included right breast lumpectomy and sentinel lymph node biopsy on 04/24/2020 followed by radiation to the right breast, completed on 07/10/2020 to a total dose of 4000 cGy administered in 15 fractions. With ER/IN positive disease she will now begin adjuvant hormonal therapy with anastrozole 1 mg daily. I reviewed potential side effects including the risk of osteoporosis and musculoskeletal pain, among others. The recommended duration of treatment is 5 years. She will be scheduled for a follow-up visit in 3 months. 2. She has a history of vitamin D deficiency. She will need a baseline DEXA scan, and she will have baseline laboratory studies to include CBC, comprehensive metabolic profile, and 25-hydroxy vitamin D level. She will have treatment for bone health as indicated. 3. She has been having acid reflux symptoms. She will be given a prescription for famotidine 20 mg twice daily. Signed By: Carlos Dobbins M.D. <<Signature on File>>
--- NOTE | 2020-07-25 08:38 | ONCRAD EPV_ITS ---
Radiation Oncology Follow-Up Note Patient Name: Darby Rajan Date of : 1945 Date of Service: 07/25/2020 Attending Physician: Jonathan Palma M.D. Darby Rajan returned to my office this morning for a routinely scheduled post-radiotherapy appointment. She completed adjuvant radiotherapy in July for the post-operative management of her pathological stage IA (T1cN0) invasive ductal carcinoma (colloid) of the central portion of the right breast. Immunohistochemical staining were positive for estrogen receptor and progesterone receptor while negative for HER2. Daily radiotherapy was administered between the dates of June 16, 2020 through July 10, 2020. A prescribed dose of 40 Gy was delivered in 15 fractions encompassing 25 elapsed days. On review of systems, she did not report any breast complaints. On physical examination, she weighed 275 lbs. Her temperature was 98.2???F. with a blood pressure of 137/77 mmHg. The pulse was 79 bpm and the respiratory rate was 18 breaths/min. Examination of the right breast identified minimal erythema and desquamation. In summary, Ms. Rajan returned for a routine post-radiotherapy follow-up. She has no residual sequelae from radiotherapy and will continue follow-up with her medical oncologist as scheduled. Signed by: Dr. Jonathan Palma 07/25/2020 8:37:53 AM
== END 2020-08-03 23:59 | disposition home or self-care (01) ==
LOC: ONCMED 06:02
PROVIDERS: PCP Internal Medicine; Visit Provider Radiology Radiation Oncology
DX: Z51.0 Encounter for antineoplastic radiation therapy (principal); C50.211 Malignant neoplasm of upper-inner quadrant of right female breast; Z17.0 Estrogen receptor positive status [ER+]; I10 Essential (primary) hypertension; E11.9 Type 2 diabetes mellitus without complications; M19.90 Unspecified osteoarthritis, unspecified site; E55.9 Vitamin D deficiency, unspecified; F41.9 Anxiety disorder, unspecified; Z79.899 Other long term (current) drug therapy
CPT/HCPCS: 77336; 77387; 77412; 99214

== ENCOUNTER 2020-08-04 14:38 | Outpatient (RCR) | payer MEDICARE, OTHER, SELFPAY ==
--- NOTE | 2020-08-04 14:43 | XR_ITS ---
WS: [id number] SCREENING DEXA SCAN [facility] CLINICAL INFORMATION: ASYMPTOMATIC POSTMEONPAUSAL COMPARISON: None. FINDINGS: The L1-L4 bone mineral density measures 1.370 g/cm2. This corresponds to a T score score of 1.6 and Z score of 2.2. Left femoral neck bone mineral density measures 1.053 g/cm2. This corresponds to a T score of 0.4 and Z score of 1.2. Right femoral neck bone mineral density measures 1.104 g/cm2. This corresponds to a T score 0.8of and Z score of 1.6. Mean femoral neck bone mineral density measures 1.079 g/cm2. This corresponds to a T score of 0.6 and Z score of 1.4. XR/XR DEXA axial skeleton* [id number] IMPRESSION: Normal bone mineralization. Patient's FRAX calculated 10 year probability for major osteoporotic fracture i s 7.7 % and osteoporotic hip fracture is 0.9%.
== END 2020-08-31 23:59 | disposition home or self-care (01) ==
LOC: RADWPI 14:38
PROVIDERS: PCP Internal Medicine; Visit Provider Internal Medicine Medical Oncology
DX: C50.211 Malignant neoplasm of upper-inner quadrant of right female breast (principal); Z17.0 Estrogen receptor positive status [ER+]; M81.0 Age-related osteoporosis without current pathological fracture; Z78.0 Asymptomatic menopausal state
CPT/HCPCS: 77080

== ENCOUNTER 2020-11-27 08:19 | Outpatient (CLI) | payer MEDICARE, OTHER, SELFPAY ==
--- NOTE | 2020-11-27 12:03 | ONC FU_ITS ---
Dr. Dobbins Patient Follow-Up Note Patient: Darby Rajan Unit #: [id number]: 1945 Dicatated By: Carlos Dobbins M.D.Date of Visit:November 27, 2020 Onc Med Follow-up/Prog Note Chief Complaint: Breast cancer. History of Present Illness: This is a 75 year-old woman with grade 3 infiltrating ductal carcinoma of the right breast, stage IB (T1c, pN0, M0), ER/WY positive and HER-2/brianna negative. She had a screening mammogram on 03/05/2020. At that time she was having some sharp pain in the left breast. The mammogram was BI-RADS 0 with evidence of an 11 mm asymmetric density in the mid depth right breast, increased compared to a prior study from January 2019. Diagnostic right breast mammogram and ultrasound on 03/24/2020 was BI-RADS 4, suspicious. Ultrasound findings included a hypoechoic, solid-appearing lesion at the 12 o'clock position measuring 9.9 x 9.9 x 1.7 cm. A few normal-sized lymph nodes were noted in the right axilla, the largest measuring 1.7 x 0.8 x 1.3 cm with normal cortex and preserved echogenic fatty hilum. There are no suspicious lymph nodes identified. Ultrasound-guided core needle biopsy of the right breast mass on 04/03/2020 showed grade 3 invasive ductal carcinoma. The breast prognostic profile showed ER positive at 90% and WY positive at 90%. The tumor is negative for overexpression of HER-2/brianna, 2+ by IHC and amplification ratio by FISH of 1.3 with 2.9 HER-2 copies/cell. The Ki-67 was unfavorable at 45%. On 04/24/2020 she underwent right breast lumpectomy with axillary sentinel lymph node biopsy. Pathology showed a single focus of grade 3 invasive ductal carcinoma measuring 1.5 cm in maximum dimension. The margins were uninvolved with the closest being the posterior margin at 0.4 cm. Pathologic staging was pT1c, pN0. I had seen her initially on 05/12/2020. With an ER/WY positive T1c primary tumor and negative axillary sentinel lymph node biopsy, I had recommended further evaluation with Oncotype DX. It showed a recurrence score of 34, which was high risk category, corresponding to a 22% risk of distant recurrence at 9 years with adjuvant hormonal therapy alone. The estimated absolute benefit with addition of adjuvant chemotherapy was greater than 15%. I had a lengthy discussion with her regarding the Oncotype results, as with those findings she was recommended to have adjuvant chemotherapy. However, she declined treatment. She was then seen by Dr. Palma for radiation oncology consultation and she underwent radiation to the right breast, completed on 07/10/2020 to a total dose of 4000 cGy administered in 15 fractions. Her other medical illnesses include hypertension and type 2 diabetes. She has severe degenerative arthritis of her knees. She has a history of vitamin D deficiency, and she also has chronic anxiety. She is a non-smoker. INTERIM HISTORY: On 07/17/2019 when she began adjuvant hormonal therapy with anastrozole 1 mg daily. Her baseline DEXA scan showed normal bone density with T score 1.6 in the lumbar spine, 0.4 in the left femoral neck, and 0.8 in the right femoral neck. She is seen for a followup visit. She indicates that she had to stop the anastrozole about a month ago due to multiple side effects, the most significant being severe fatigue, constant hot flashes, and depression. She says she was a nervous wreck and crying all the time. The symptoms have improved since she has been off the medication, though she still complains that she has hardly any energy. Her activity is limited due to her pain, which is mainly in the lower extremities. She is able to do some housework. ECOG score is 1. Appetite is not particularly good, she says she does not eat that much. She has not had fever. She is now having just occasional hot flashes. She does have sweating associated with activity. She has seasonal allergy symptoms. She sometimes has cough. She has shortness of breath with activity. She does not complain of chest pain. She is still having acid reflux symptoms. She has been taking famotidine, though not on a consistent basis. She also has some constipation. Bladder function has been okay. She has pain in her knees, legs, ankles, and feet. She does have difficulty ambulating. She has headache off and on. She has some numbness/tingling in her feet. She also complains that her hair has been falling out, but that was already going on before she started the anastrozole. Medications: Aspirin 1 Tablet (of 81 mg) Tablet, enteric coated Oral daily, Losartan Potassium 1 Tablet (of 50 mg) Oral daily, Meloxicam 1 Tablet (of 15 mg) Oral daily, metFORMIN HCl 1 Tablet (of 500 mg) Tablet Oral b.i.d., traMADol HCl 1 Tablet (of 50 mg) Oral daily, Triamterene-HCTZ 1 Tablet (of 37.5-25 mg) Oral daily, Vitamin D3 1 Tablet (of 25 mcg) Oral daily Allergies: Iodine and Shellfish. Vital Signs: Performed on November 27, 2020 08:34 Height - 67.00 in Weight - 278.2 lbs (HIGH) BSA - 2.33 sq.m BMI - 43.57 (HIGH) Temperature - 98.2 F (LOW) Pulse - 82 /min Respiration - 18 /min BP - 181/78 mm(hg) (HIGH) O2 Sat - 97 % Pain - 0 Fatigue - 9 Physical Examination: Constitutional - She looks pretty good generally, Eyes - Sclerae nonicteric. Conjunctivae clear, ENMT - No lesions noted in the oral cavity, Hematologic/Lymphatic - No cervical, clavicular, or axillary adenopathy, Respiratory - Lungs are clear with good air movement bilaterally, Cardiovascular - Heart rhythm is regular. There is a II/ systolic murmur. There is no gallop or rub noted, Abdomen - Distended. Liver and spleen are not enlarged. There is no abdominal mass or ascites noted and there is no inguinal adenopathy, Extremities - Slight edema, Neurologic - No focal neurologic deficits noted. Problem List: 1. Grade 3 infiltrating ductal carcinoma of the right breast, stage IB (T1c, pN0, M0), ER/WY positive and HER-2/brianna negative. Her Oncotype DX was high risk, but she declined adjuvant chemotherapy. 2. She underwent right breast lumpectomy and sentinel lymph node biopsy on 04/24/2020. She completed radiation to the right breast on 07/10/2020, total dose of 4000 cGy administered in 15 fractions. 3. Hypertension. 4. Type 2 diabetes. 5. Degenerative arthritis. 6. Vitamin D deficiency. 7. Chronic anxiety. Problems Addressed with this Encounter and Plan: Patient with grade 3 infiltrating ductal carcinoma of the right breast, stage IB (T1c, pN0, M0), ER/WY positive and HER-2/brianna negative. Her Oncotype DX was high risk, but she declined adjuvant chemotherapy. Her treatment included right breast lumpectomy and sentinel lymph node biopsy on 04/24/2020 followed by radiation to the right breast, completed on 07/10/2020 to a total dose of 4000 cGy administered in 15 fractions. On 07/17/2019 she began adjuvant hormonal therapy with anastrozole 1 mg daily. She had to stop treatment last month due to multiple side effects, the most significant being fatigue, constant hot flashes, and anxiety/depression. She is feeling better now, though she still has limited activity tolerance due to her lower extremity pain, which is chronic. I reviewed options for further management. Based on the Oncotype DX, she is at significant risk for recurrence, and she declined adjuvant chemotherapy. Given the side effects she experienced, I am not certain how well she would tolerate either exemestane or tamoxifen, which would be the other options for adjuvant hormonal therapy. As such, I discussed the possibility of having further evaluation with the breast cancer index study, as it may be helpful in predicting whether or not she actually may benefit with adjuvant hormonal therapy. If there is predicted benefit, I will encourage her to continue treatment, most likely with tamoxifen. If there is no predicted benefit, it may be best to follow her expectantly, even with a relatively high risk of recurrence. Signed By: Carlos Dobbins M.D. <<Signature on File>>
== END 2020-11-27 08:20 | disposition home or self-care (01) ==
LOC: ONCMED 08:22
PROVIDERS: PCP Internal Medicine; Visit Provider Internal Medicine Medical Oncology
DX: C50.811 Malignant neoplasm of overlapping sites of right female breast (principal); Z17.0 Estrogen receptor positive status [ER+]; Z90.11 Acquired absence of right breast and nipple; I10 Essential (primary) hypertension; E11.9 Type 2 diabetes mellitus without complications; M19.90 Unspecified osteoarthritis, unspecified site; E55.9 Vitamin D deficiency, unspecified; F41.9 Anxiety disorder, unspecified; Z79.811 Long term (current) use of aromatase inhibitors
CPT/HCPCS: 99214

== ENCOUNTER 2021-01-08 08:26 | Outpatient (CLI) | payer MEDICARE, OTHER, SELFPAY ==
--- NOTE | 2021-01-11 09:53 | ONC FU_ITS ---
Dr. Dobbins Patient Follow-Up Note Patient: Darby Rajan Unit #: [id number]: 1945 Dicatated By: Carlos Dobbins M.D.Date of Visit:Jan 08, 2021 Onc Med Follow-up/Prog Note Chief Complaint: Breast cancer. History of Present Illness: This is a 75 year-old woman with grade 3 infiltrating ductal carcinoma of the right breast, stage IB (T1c, pN0, M0), ER/[place] positive and HER-2/brianna negative. She had a screening mammogram on 03/05/2020. At that time she was having some sharp pain in the left breast. The mammogram was BI-RADS 0 with evidence of an 11 mm asymmetric density in the mid depth right breast, increased compared to a prior study from January 2019. Diagnostic right breast mammogram and ultrasound on 03/24/2020 was BI-RADS 4, suspicious. Ultrasound findings included a hypoechoic, solid-appearing lesion at the 12 o'clock position measuring 9.9 x 9.9 x 1.7 cm. A few normal-sized lymph nodes were noted in the right axilla, the largest measuring 1.7 x 0.8 x 1.3 cm with normal cortex and preserved echogenic fatty hilum. There are no suspicious lymph nodes identified. Ultrasound-guided core needle biopsy of the right breast mass on 04/03/2020 showed grade 3 invasive ductal carcinoma. The breast prognostic profile showed ER positive at 90% and WV positive at 90%. The tumor is negative for overexpression of HER-2/brianna, 2+ by IHC and amplification ratio by FISH of 1.3 with 2.9 HER-2 copies/cell. The Ki-67 was unfavorable at 45%. On 04/24/2020 she underwent right breast lumpectomy with axillary sentinel lymph node biopsy. Pathology showed a single focus of grade 3 invasive ductal carcinoma measuring 1.5 cm in maximum dimension. The margins were uninvolved with the closest being the posterior margin at 0.4 cm. Pathologic staging was pT1c, pN0. I had seen her initially on 05/12/2020. With an ER/WV positive T1c primary tumor and negative axillary sentinel lymph node biopsy, I had recommended further evaluation with Oncotype DX. It showed a recurrence score of 34, which was high risk category, corresponding to a 22% risk of distant recurrence at 9 years with adjuvant hormonal therapy alone. The estimated absolute benefit with addition of adjuvant chemotherapy was greater than 15%. I had a lengthy discussion with her regarding the Oncotype results, as with those findings she was recommended to have adjuvant chemotherapy. However, she declined treatment. She was then seen by Dr. Palma for radiation oncology consultation and she underwent radiation to the right breast, completed on 07/10/2020 to a total dose of 4000 cGy administered in 15 fractions. Her other medical illnesses include hypertension and type 2 diabetes. She has severe degenerative arthritis of her knees. She has a history of vitamin D deficiency, and she also has chronic anxiety. She is a non-smoker. INTERIM HISTORY: On 07/17/2019 when she began adjuvant hormonal therapy with anastrozole 1 mg daily. Her baseline DEXA scan showed normal bone density with T score 1.6 in the lumbar spine, 0.4 in the left femoral neck, and 0.8 in the right femoral neck. I had seen her for a follow-up visit on 11/27/2020. She had stopped the anastrozole about a month earlier due to multiple side effects, the most significant being severe fatigue, constant hot flashes, and depression. In view of the severity of those side effects, I had opted to evaluate further with the Breast Cancer Index study before considering further adjuvant endocrine therapy. It showed a 16.1% risk of late distant recurrence, which is not particularly relevant at this point. However, the predictive did confirm that she would likely benefit from endocrine therapy. She is seen now for a followup visit. She had recently started treatment with nitrofurantoin for suspected urinary tract infection. She was having a lot of pressure/pain in her pelvic/perineal area, no symptoms have improved. She continues to have limited activity. It is mainly due to her knee pain, but she also does complain that she is very tired. Her appetite is been okay. She has not had fever. She does have hot flashes, not like they were on the anastrozole. She says her breathing is okay. She does have cough off and on, attributable to allergies. She sometimes has pain in the chest when she first starts eating and she does have acid reflux symptoms with drinking anything. She has diarrhea off and on. Bladder function has been okay. She has occasional headache. She sometimes has numbness in her feet. Medications: Aspirin 1 Tablet (of 81 mg) Tablet, enteric coated Oral daily, Famotidine 1 (20 mg) Tablet Oral b.i.d., Losartan Potassium 1 Tablet (of 50 mg) Oral daily, Meloxicam 1 Tablet (of 15 mg) Oral daily, metFORMIN HCl 1 Tablet (of 500 mg) Tablet Oral b.i.d., Nitrofurantoin Monohyd Macro (100 mg) Capsule Oral b.i.d., traMADol HCl 1 Tablet (of 50 mg) Oral daily, Triamterene-HCTZ 1 Tablet (of 37.5-25 mg) Oral daily, Vitamin D3 1 Tablet (of 25 mcg) Oral daily Allergies: Iodine and Shellfish. Vital Signs: Performed on Jan 08, 2021 09:11 Height - 67.00 in Weight - 278.2 lbs BSA - 2.33 sq.m BMI - 43.57 (HIGH) Temperature - 97.8 F (LOW) Pulse - 83 /min Respiration - 18 /min BP - 166/84 mm(hg) (HIGH) O2 Sat - 95 % (LOW) Pain - 7 Fatigue - 8 Physical Examination: Constitutional - She looks pretty good generally, Eyes - Sclerae nonicteric. Conjunctivae clear, ENMT - No lesions noted in the oral cavity, Hematologic/Lymphatic - No cervical, clavicular, or axillary adenopathy, Respiratory - Lungs are clear with good air movement bilaterally, Cardiovascular - Heart rhythm is regular. There is a II/ systolic murmur. There is no gallop or rub noted, Breasts - The right breast shows no mass. There is no axillary adenopathy noted, Abdomen - Distended. Liver and spleen are not enlarged. There is no abdominal mass or ascites noted and there is no inguinal adenopathy, Extremities - Slight edema, Neurologic - No focal neurologic deficits noted. Problem List: 1. Grade 3 infiltrating ductal carcinoma of the right breast, stage IB (T1c, pN0, M0), ER/WV positive and HER-2/brianna negative. Her Oncotype DX was high risk, but she declined adjuvant chemotherapy. 2. She underwent right breast lumpectomy and sentinel lymph node biopsy on 04/24/2020. She completed radiation to the right breast on 07/10/2020, total dose of 4000 cGy administered in 15 fractions. 3. Hypertension. 4. Type 2 diabetes. 5. Degenerative arthritis. 6. Vitamin D deficiency. 7. Chronic anxiety. Problems Addressed with this Encounter and Plan: 1. Patient with grade 3 infiltrating ductal carcinoma of the right breast, stage IB (T1c, pN0, M0), ER/[place] positive and HER-2/brianna negative. Her Oncotype DX was high risk, but she declined adjuvant chemotherapy. Her treatment included right breast lumpectomy and sentinel lymph node biopsy on 04/24/2020 followed by radiation to the right breast, completed on 07/10/2020 to a total dose of 4000 cGy administered in 15 fractions. On 07/17/2019 she began adjuvant hormonal therapy with anastrozole 1 mg daily. She had to stop treatment in October 2020 due to multiple side effects, the most significant being fatigue, constant hot flashes, and anxiety/depression. Due to the severity of those side effects, I opted to evaluate further with a Breast Cancer Index study. I did show a 16.1% risk of late distant recurrence. The predictive component, which is more relevant to her current situation, did show likely benefit with endocrine therapy. As such, she is strongly encouraged to continue with further adjuvant therapy. She is agreeable and she will now begin a trial of therapy with exemestane 25 mg daily, subject to verification of insurance coverage. She will tentatively be scheduled for a follow-up visit in 3 months. 2. She is having significant acid reflux symptoms, and she will also be given a prescription for pantoprazole 40 mg daily. Signed By: Carlos Dobbins M.D. <<Signature on File>>
== END 2021-01-08 08:27 | disposition home or self-care (01) ==
LOC: ONCMED 08:30
PROVIDERS: PCP Internal Medicine; Visit Provider Internal Medicine Medical Oncology
DX: C50.811 Malignant neoplasm of overlapping sites of right female breast (principal); Z17.0 Estrogen receptor positive status [ER+]; Z92.3 Personal history of irradiation; I11.0 Hypertensive heart disease with heart failure; E11.9 Type 2 diabetes mellitus without complications; M19.90 Unspecified osteoarthritis, unspecified site; E55.9 Vitamin D deficiency, unspecified; F41.9 Anxiety disorder, unspecified; Z79.811 Long term (current) use of aromatase inhibitors
CPT/HCPCS: 99214

== ENCOUNTER 2021-12-29 09:34 | Oncology outpatient (recurring) (ONCR) | payer MEDICARE, OTHER, SELFPAY ==
[2021-12-29 10:06] LABS: Basophils % 0.3 %; Eosinophils # 0.1 10^3/uL (0.0-0.8); Eosinophils % 2.1 %; Hematocrit 39.1 % (37.0-47.0); Lymphocytes # 1.8 10^3/uL (0.8-4.8); Lymphocytes % 27.1 %; Mean Corpuscular HGB Conc 33.2 g/dL (30.0-36.0); Mean Corpuscular Volume 87.3 fl (81-99); Mean Platelet Volume 9.7 fL (7.4-10.4); Monocytes # 0.5 10^3/uL (0.2-0.9); Monocytes % 8.1 %; Neutrophils # 4.13 10^3/uL (1.8-7.7); Neutrophils % 62.2 %; Nucleated Red Blood Cells % 0 %; Platelet Count 277 10^3/cmm (130-400); Red Blood Count 4.48 10^6/uL (4.1-5.3); White Blood Count 6.6 10^3/uL (4.0-10.0)
[2021-12-29 10:24] LABS: Alanine Aminotransferase 16 U/L (0-33); Albumin Level 4.5 g/dL (3.5-5.2); Alkaline Phosphatase 100 IU/L (35-105); Anion Gap 15.4 (5-19); Aspartate Amino Transferase 16 U/L (0-32); Blood Urea Nitrogen 23 mg/dL (8-23); Calcium 9.5 mg/dL (8.5-10.5); Carbon Dioxide 25 mmol/L (22-29); Chloride 101 mmol/L (98-107); Globulin 2.7 g/dL (1.3-4.6); Glucose 99 mg/dL (65-115); Osmolality Calculated 288 mOsm/kg (285-295); Potassium 4.4 mmol/L (3.5-5.1); Sodium 137 mmol/L (136-145); Total Bilirubin 0.4 mg/dL (0.15-1.2); Total Protein 7.2 g/dL (6.6-8.7)
== END 2021-12-31 23:59 | disposition home or self-care (01) ==
LOC: ONCMED 09:35
PROVIDERS: Internal Medicine Medical Oncology; PCP Internal Medicine; Visit Provider Internal Medicine
DX: C50.211 Malignant neoplasm of upper-inner quadrant of right female breast (principal); Z17.0 Estrogen receptor positive status [ER+]; Z79.811 Long term (current) use of aromatase inhibitors
CPT/HCPCS: 36415; 80053; 85025; 99214

== ENCOUNTER 2022-01-28 09:39 | Outpatient (CLI) | payer MEDICARE, OTHER, SELFPAY ==
--- NOTE | 2022-01-28 09:50 | MM_ITS ---
WS: [id number] DIAGNOSTIC BILATERAL DIGITAL BREAST TOMOSYNTHESIS MAMMOGRAPHY WITH CAD HISTORY: HX OF BREAST CA COMPARISON: 03/05/2020 and 01/10/2019 TECHNIQUE: Bilateral craniocaudad, mediolateral oblique, and mediolateral views are submitted with to mosynthesis and SM. Computer aided detection utilized. Breast composition: There are scattered areas of fibroglandular density. Postsurgical changes are not ed in the upper outer quadrant of the RIGHT breast. Benign calcifications in each breast. No recurren t mass. MM/[place] [id number] IMPRESSION: BI-RADS: 2-Benign FOLLOW UP: 1 Year Follow-up
== END 2022-01-28 09:40 | disposition home or self-care (01) ==
LOC: RAD 09:40
PROVIDERS: PCP Internal Medicine; Visit Provider Internal Medicine Medical Oncology
DX: Z85.3 Personal history of malignant neoplasm of breast (principal)
CPT/HCPCS: 77062

== ENCOUNTER 2022-03-31 11:56 | Outpatient (CLI) | payer MEDICARE, OTHER, SELFPAY ==
--- NOTE | 2022-03-31 12:08 | CT_ITS ---
WS: [id number] CT ABDOMEN AND PELVIS NONCONTRAST HISTORY: HEMATURIA TECHNIQUE: Imaging performed through the abdomen and pelvis. Coronal and sagittal reformats are submi tted. All CT scans at [facility] use at least one of these dose optimization techniques: auto mated exposure control; mA and/or kV adjustment per patient size (includes targeted exams where dose is matched to clinical indication); or iterative reconstruction. DLP: 1371.39 mGy.cm COMPARISON: 01/16/2019 Lower thorax: Mild dependent changes at the lung bases. No mass or nodule. Heart is very mildly enlar ged. Small hiatal hernia. Liver: Mild diffuse hepatic steatosis. The liver is normal size. No bile duct dilatation. Gallbladder: Normal gallbladder. Pancreas: Normal size and attenuation. Normal pancreatic duct. No pancreatitis or mass. Spleen: Normal. Adrenal glands: Normal. No mass. Right kidney: Normal size kidney with no mass or hydronephrosis. No ureteral dilatation or renal calc ifications. Left kidney: Normal size kidney with no mass or hydronephrosis. No calcification. Aorta: Mild atherosclerosis aorta. No free fluid, intraperitoneal air or significant lymphadenopathy. GI tract: Nondistended stomach. No small bowel obstruction. Row of surgical sutures in the RIGHT abdo men. No mass or obstruction. There is mild dilatation of the small bowel loop but similar to prior st udies. There are a few scattered sigmoid diverticula. No acute inflammation. Abdominal wall: Small umbilical hernia contains fat only. Previously described RIGHT paraumbilical he rnia containing small bowel is no longer present. No definite defect within the abdominal wall remain s although there is thinning of the aponeurosis. Pelvis: Prior hysterectomy. No free fluid or adenopathy. Osseous structures: L4 anterolisthesis by 5 mm. Bilateral facet joint arthritis. CT/CT abdomen pelvis wo con [id number] IMPRESSION: 1. No renal obstruction or calcifications. 2. Small bowel anastomosis in the RIGHT abdomen is stable. No obstruction or r ecurrent mass. 3. The appendix is not definitely identified. 4. No abdominal wall hernia.
== END 2022-03-31 11:57 | disposition home or self-care (01) ==
LOC: RAD 11:57
PROVIDERS: PCP Internal Medicine; Visit Provider Internal Medicine
DX: R31.9 Hematuria, unspecified (principal)
CPT/HCPCS: 74176

== ENCOUNTER 2022-07-06 12:23 | Oncology outpatient (recurring) (ONCR) | payer MEDICARE, OTHER, SELFPAY | END 2022-08-03 23:59 | disposition home or self-care (01) | PROVIDERS: PCP Electrodiagnostic Medicine; Visit Provider Internal Medicine Medical Oncology | DX: C50.211 Malignant neoplasm of upper-inner quadrant of right female breast (principal); Z17.0 Estrogen receptor positive status [ER+]; Z79.818 Long term (current) use of other agents affecting estrogen receptors and estrogen levels; Z92.3 Personal history of irradiation | CPT/HCPCS: 99214 ==

== ENCOUNTER 2022-12-08 12:26 | Oncology outpatient (recurring) (ONCR) | payer MEDICARE, OTHER, SELFPAY ==
[2022-12-08 12:33] VITALS: BP 171/91; PULSE 81; RESP 18; TEMP 36.6; O2SAT 97
[2022-12-08 13:08] LABS: Basophils % 0.4 %; Eosinophils # 0.1 10^3/uL (0.0-0.8); Eosinophils % 1.7 %; Hematocrit 40.4 % (37.0-47.0); Hemoglobin 13.1 g/dL (11.5-15.3); Lymphocytes # 1.9 10^3/uL (0.8-4.8); Mean Corpuscular HGB Conc 32.4 g/dL (30.0-36.0); Mean Corpuscular Hemoglobin 28.7 pg (28.0-34.0); Mean Corpuscular Volume 88.6 fl (81-99); Mean Platelet Volume 9.4 fL (7.4-10.4); Monocytes # 0.5 10^3/uL (0.2-0.9); Neutrophils # 4.93 10^3/uL (1.8-7.7); Neutrophils % 65.6 %; Nucleated Red Blood Cells % 0 %; Platelet Count 307 10^3/cmm (130-400); Red Blood Count 4.56 10^6/uL (4.1-5.3); Red Cell Distribution Width 14.4 % (12.1-15.1); White Blood Count 7.5 10^3/uL (4.0-10.0)
[2022-12-08 13:30] LABS: Alanine Aminotransferase 14 U/L (0-33); Albumin Level 4.4 g/dL (3.5-5.2); Alkaline Phosphatase 91 U/L (35-105); Anion Gap 14.4 (5-19); Aspartate Amino Transferase 17 U/L (0-32); Blood Urea Nitrogen 16 mg/dL (8-23); Calcium 9.7 mg/dL (8.5-10.5); Carbon Dioxide 26 mmol/L (22-29); Chloride 100 mmol/L (98-107); Globulin 2.6 g/dL (1.3-4.6); Glucose 103 mg/dL (65-115); Osmolality Calculated 283 mOsm/kg (285-295); Potassium 4.4 mmol/L (3.5-5.1); Sodium 136 mmol/L (136-145); Total Bilirubin 0.3 mg/dL (0.15-1.2)
== END 2022-12-31 23:59 | disposition home or self-care (01) ==
LOC: ONCMED 12:28
PROVIDERS: Nurse Practitioner Family; PCP Electrodiagnostic Medicine; Visit Provider Internal Medicine Medical Oncology
DX: M06.9 Rheumatoid arthritis, unspecified (principal); C50.211 Malignant neoplasm of upper-inner quadrant of right female breast; Z17.0 Estrogen receptor positive status [ER+]; Z79.818 Long term (current) use of other agents affecting estrogen receptors and estrogen levels; Z92.3 Personal history of irradiation
CPT/HCPCS: 80053; 85025; 99213

== ENCOUNTER 2023-02-01 08:29 | Outpatient (CLI) | payer MEDICARE, OTHER, SELFPAY ==
--- NOTE | 2023-02-01 08:52 | MM_ITS ---
WS: [id number] DIAGNOSTIC BILATERAL DIGITAL BREAST TOMOSYNTHESIS MAMMOGRAPHY WITH CAD HISTORY: ANNUAL - HX BR CA COMPARISON: 01/28/2022, 03/24/2020 and 2019 TECHNIQUE: Bilateral craniocaudad, mediolateral oblique, and mediolateral views are submitted with to mosdoretha and SM. Computer aided detection utilized. Breast composition: There are scattered areas of fibroglandular density. Postsurgical scarring in the upper outer quadrant of the RIGHT breast is similar to the most recent exam. No adverse change. Ther e are benign calcifications within each breast. MM/[place] [id number] IMPRESSION: BI-RADS: 2-Benign FOLLOW UP: 1 Year Follow-up
== END 2023-02-01 08:30 | disposition home or self-care (01) ==
LOC: RAD 08:30
PROVIDERS: PCP Electrodiagnostic Medicine; Visit Provider Nurse Practitioner Family
DX: Z12.31 Encounter for screening mammogram for malignant neoplasm of breast (principal); Z85.3 Personal history of malignant neoplasm of breast
CPT/HCPCS: 77062; G0279

== ENCOUNTER 2023-02-10 13:54 | Oncology outpatient (recurring) (ONCR) | payer MEDICARE, OTHER, SELFPAY | END 2023-03-03 23:59 | disposition home or self-care (01) | PROVIDERS: PCP Electrodiagnostic Medicine; Visit Provider Internal Medicine Medical Oncology | DX: M06.9 Rheumatoid arthritis, unspecified (principal); C50.211 Malignant neoplasm of upper-inner quadrant of right female breast; Z17.0 Estrogen receptor positive status [ER+]; Z79.818 Long term (current) use of other agents affecting estrogen receptors and estrogen levels; Z92.3 Personal history of irradiation | CPT/HCPCS: 99213 ==

== ENCOUNTER 2023-02-21 13:29 | Outpatient (CLI) | payer MEDICARE, OTHER, SELFPAY ==
--- NOTE | 2023-02-21 14:00 | XR_ITS ---
WS: [email or web address] SCREENING DEXA SCAN Neonode CLINICAL INFORMATION: post menopausal on aromatase inhibitor COMPARISON: 2020 FINDINGS: The L1-L4 bone mineral density measures 1.46. This corresponds to a T score score of 2.2 and Z score of 2.8. Left femoral neck bone mineral density measures 1.053 g/cm2. This corresponds to a T score of 0.4 and Z score of 1.3. Right femoral neck bone mineral density measures 1.045 g/cm2. This corresponds to a T score 0.3of and Z score of 1.3. Mean femoral neck bone mineral density measures 1.049 g/cm2. This corresponds to a T score of 0.3 and Z score of 1.3. IMPRESSION: Normal bone mineralization. Patient's FRAX calculated 10 year probability for major osteoporotic fracture is 10.3% and osteoporot ic hip fracture is 1.5%. Bone mineral density in lumbar spine increased 7.2% since 2020 Bone mineral density femoral necks decrease -2.8% since 2020
== END 2023-02-21 13:30 | disposition home or self-care (01) ==
LOC: RAD 13:31
PROVIDERS: PCP Electrodiagnostic Medicine; Visit Provider Nurse Practitioner Family
DX: Z78.0 Asymptomatic menopausal state (principal)
CPT/HCPCS: 77080

== ENCOUNTER 2023-06-29 08:38 | Oncology outpatient (recurring) (ONCR) | payer MEDICARE, OTHER, SELFPAY | END 2023-07-03 23:59 | disposition home or self-care (01) | LOC: ONCMED 08:38 | PROVIDERS: PCP Electrodiagnostic Medicine; Visit Provider Internal Medicine Medical Oncology | DX: M06.9 Rheumatoid arthritis, unspecified (principal); C50.211 Malignant neoplasm of upper-inner quadrant of right female breast; Z17.0 Estrogen receptor positive status [ER+]; Z79.818 Long term (current) use of other agents affecting estrogen receptors and estrogen levels; Z92.3 Personal history of irradiation | CPT/HCPCS: 99213 ==

== ENCOUNTER 2023-08-08 07:48 | Oncology outpatient (recurring) (ONCR) | payer MEDICARE, OTHER, SELFPAY ==
[2023-08-08 08:24] LABS: Basophils % 0.5 %; Eosinophils # 0.2 10^3/uL (0.0-0.8); Eosinophils % 3.5 %; Hematocrit 40.5 % (36-47); Lymphocytes # 1.7 10^3/uL (0.8-4.8); Lymphocytes % 27.9 %; Mean Corpuscular HGB Conc 33.1 g/dL (30-55); Mean Corpuscular Hemoglobin 29.4 pg (27-33); Mean Corpuscular Volume 88.8 fl (85-98); Monocytes # 0.5 10^3/uL (0.2-0.9); Monocytes % 8.2 %; Neutrophils # 3.69 10^3/uL (1.8-7.7); Neutrophils % 59.6 %; Nucleated Red Blood Cells % 0 %; Platelet Count 242 10^3/cmm (157-399); Red Blood Count 4.56 10^6/uL (3.85-5.65); Red Cell Distribution Width 13.9 % (12.1-15.1)
[2023-08-08 08:36] LABS: Alanine Aminotransferase 19 U/L (0-33); Albumin Level 4.2 g/dL (3.5-5.2); Alkaline Phosphatase 105 U/L (35-105); Anion Gap 16.1 (5-19); Aspartate Amino Transferase 18 U/L (0-32); Blood Urea Nitrogen 25 mg/dL (8-23); Carbon Dioxide 26 mmol/L (22-29); Chloride 98 mmol/L (98-107); Globulin 2.5 g/dL (1.3-4.6); Glucose 112 mg/dL (65-115); Osmolality Calculated 287 mOsm/kg (285-295); Potassium 4.1 mmol/L (3.5-5.1); Sodium 136 mmol/L (136-145); Total Bilirubin 0.5 mg/dL (0.15-1.2); Total Protein 6.7 g/dL (6.6-8.7)
== END 2023-09-01 23:59 | disposition home or self-care (01) ==
PROVIDERS: PCP Electrodiagnostic Medicine; Visit Provider Internal Medicine Medical Oncology
DX: C50.211 Malignant neoplasm of upper-inner quadrant of right female breast
CPT/HCPCS: 36415; 80053; 85025

== ENCOUNTER 2023-10-12 15:31 | Outpatient (RCR) | payer MEDICARE, OTHER, SELFPAY | END 2023-11-01 23:59 | disposition home or self-care (01) | LOC: SPT 15:31 | PROVIDERS: PCP Electrodiagnostic Medicine; Visit Provider Electrodiagnostic Medicine | DX: M25.561 Pain in right knee (principal) | CPT/HCPCS: 97110; 97161 ==

== ENCOUNTER 2023-11-02 06:00 | Outpatient (RCR) | payer MEDICARE, OTHER, SELFPAY | END 2023-12-02 23:59 | disposition home or self-care (01) | LOC: SPT 06:00 | PROVIDERS: PCP Electrodiagnostic Medicine; Visit Provider Electrodiagnostic Medicine | DX: M25.561 Pain in right knee (principal) | CPT/HCPCS: 97110 ==

== ENCOUNTER 2023-12-29 07:43 | Oncology outpatient (recurring) (ONCR) | payer MEDICARE, OTHER, SELFPAY | END 2024-01-01 23:59 | disposition home or self-care (01) | PROVIDERS: PCP Electrodiagnostic Medicine; Visit Provider Internal Medicine Medical Oncology | DX: C50.211 Malignant neoplasm of upper-inner quadrant of right female breast (principal); Z17.0 Estrogen receptor positive status [ER+]; Z92.3 Personal history of irradiation; Z92.25 Personal history of immunosuppression therapy | CPT/HCPCS: 99213 ==

== ENCOUNTER 2024-02-08 07:40 | Outpatient (CLI) | payer MEDICARE, OTHER, SELFPAY ==
--- NOTE | 2024-02-08 08:00 | MM_ITS ---
WS: [email or web address] DIAGNOSTIC BILATERAL DIGITAL BREAST TOMOSYNTHESIS MAMMOGRAPHY WITH CAD HISTORY: Annual exam. COMPARISON: 02/01/2023, 01/28/2022, 03/24/2020 and 12/19/2017 TECHNIQUE: Bilateral craniocaudad, mediolateral oblique, and mediolateral views are submitted with to mosynthesis and SM. Computer aided detection utilized. Breast composition: There are scattered areas of fibroglandular density. Postsurgical lumpectomy and scar site noted in the upper outer quadrant of the RIGHT breast. No residual or recurrent mass identi fied. There are benign calcifications in each breast. MM/[place] [id number] IMPRESSION: BI-RADS: 2-Benign FOLLOW UP: 1 Year Follow-up
== END 2024-02-08 07:41 | disposition home or self-care (01) ==
PROVIDERS: PCP Electrodiagnostic Medicine; Visit Provider Nurse Practitioner Family
DX: C50.211 Malignant neoplasm of upper-inner quadrant of right female breast (principal); R92.323 Mammographic fibroglandular density, bilateral breasts; Z98.890 Other specified postprocedural states
CPT/HCPCS: 77062; G0279

== ENCOUNTER 2024-02-21 13:23 | Outpatient (RCR) | payer MEDICARE, OTHER, SELFPAY | END 2024-03-03 18:00 | disposition home or self-care (01) | LOC: SPT 13:23 | PROVIDERS: Visit Provider Nurse Practitioner Family | DX: M17.11 Unilateral primary osteoarthritis, right knee (principal) | CPT/HCPCS: 97110; 97161 ==

== ENCOUNTER 2024-07-02 10:49 | Oncology outpatient (recurring) (ONCR) | payer MEDICARE, OTHER, SELFPAY ==
[2024-07-02 14:26] LABS: Alanine Aminotransferase 15 U/L (0-33); Albumin Level 4.1 g/dL (3.5-5.2); Alkaline Phosphatase 108 U/L (35-105); Anion Gap 18.4 (5-19); Aspartate Amino Transferase 15 U/L (0-32); Blood Urea Nitrogen 22 mg/dL (8-23); Calcium 9.7 mg/dL (8.5-10.5); Carbon Dioxide 22 mmol/L (22-29); Chloride 100 mmol/L (98-107); Creatinine Clr Calc Pharmacy 75.2812; Globulin 2.7 g/dL (1.3-4.6); Glucose 94 mg/dL (65-115); Osmolality Calculated 285 mOsm/kg (285-295); Potassium 4.4 mmol/L (3.5-5.1); Sodium 136 mmol/L (136-145); Total Bilirubin 0.3 mg/dL (0.15-1.2); Total Protein 6.8 g/dL (6.6-8.7)
== END 2024-07-03 23:59 | disposition home or self-care (01) ==
PROVIDERS: Nurse Practitioner Family; Visit Provider Internal Medicine Medical Oncology
DX: C50.211 Malignant neoplasm of upper-inner quadrant of right female breast (principal)
CPT/HCPCS: 36415; 80053; 99214

== ENCOUNTER 2024-12-18 08:50 | Oncology outpatient (recurring) (ONCR) | payer MEDICARE, OTHER, SELFPAY | END 2024-12-31 23:59 | disposition home or self-care (01) | PROVIDERS: Visit Provider Internal Medicine Medical Oncology | DX: C50.211 Malignant neoplasm of upper-inner quadrant of right female breast (principal); Z17.0 Estrogen receptor positive status [ER+]; R03.0 Elevated blood-pressure reading, without diagnosis of hypertension; Z92.3 Personal history of irradiation | CPT/HCPCS: 99214 ==

== ENCOUNTER 2025-02-11 07:55 | Outpatient (CLI) | payer MEDICARE, OTHER, SELFPAY ==
--- NOTE | 2025-02-11 08:00 | MM_ITS ---
WS: [email or web address] DIAGNOSTIC BILATERAL DIGITAL BREAST TOMOSYNTHESIS MAMMOGRAPHY WITH CAD HISTORY: malignant neoplasm of right breast COMPARISON: 02/08/2024, 02/01/2023 and 01/28/2022 TECHNIQUE: Bilateral craniocaudad, mediolateral oblique, and mediolateral views are submitted with tomosynthesis and SM. Computer aided detection utilized. Breast composition: There are scattered areas of fibroglandular density. Stable post lumpectomy and treatment changes in the upper outer quadrant of the RIGHT breast. No mass or progression of scar formation. There are scattered benign calcifications in each breast. No cluster of calcifications or new distortion. MM/MM diag BI tomosynthesis [id number] IMPRESSION: BI-RADS: 2 - Benign. FOLLOW UP: 1 Year Follow-up
== END 2025-02-11 07:56 | disposition home or self-care (01) ==
LOC: RAD 07:57
PROVIDERS: PCP Electrodiagnostic Medicine; Visit Provider Internal Medicine Medical Oncology
DX: C50.211 Malignant neoplasm of upper-inner quadrant of right female breast (principal)
CPT/HCPCS: 77062; G0279

== ENCOUNTER 2025-05-16 07:43 | Outpatient (CLI) | payer MEDICARE, OTHER, SELFPAY ==
--- NOTE | 2025-05-16 07:54 | MR_ITS ---
WS: [email or web address] MRI HEAD WITH CONTRAST TECHNIQUE: Sagittal T1, T2 axial, T2 axial FLAIR, axial susceptibility weighted imaging, axial diffusion weighted images, and coronal T2 images were obtained. Pre and post-T1 axial and post T1 coronal images. ADC and FSPGR images. CLINICAL INFORMATION: VERTICAL NYSTAGMUS COMPARISON: None. FINDINGS: No evidence of restricted diffusion to suggest acute ischemia. Mild small vessel changes with mild parenchymal volume loss. Paranasal sinuses are well aerated. Mild mucosal thickening LEFT mastoid tip. Normal posterior nasopharynx. No hemosiderin on the susceptibility weighted images. Normal optic chiasm and pituitary infundibulum. Temporal lobes and hippocampal formations are normal in appearance. No signal abnormalities in the mesial temporal lobes. No abnormal gadolinium enhancement. MR/MR head wo/w con [id number] IMPRESSION: 1. No evidence of restricted diffusion to suggest acute ischemia. 2. Mild small vessel changes with mild parenchymal volume loss. 3. Temporal lobes and hippocampal formations are normal in appearance. 4. No abnormal gadolinium enhancement. 5. No other acute findings.
[2025-05-16] MEDS: gadobenate dimeglumine 20 mL vial IV (14:11)
== END 2025-05-16 07:44 | disposition home or self-care (01) ==
LOC: RAD 07:44
PROVIDERS: PCP Electrodiagnostic Medicine; Visit Provider Electrodiagnostic Medicine
DX: H55.09 Other forms of nystagmus (principal); G93.89 Other specified disorders of brain
CPT/HCPCS: 70553; A9577

== ENCOUNTER 2025-06-20 08:25 | Outpatient (RCR) | payer MEDICARE, OTHER, SELFPAY | END 2025-07-03 23:59 | disposition home or self-care (01) | LOC: SPT 08:25 | PROVIDERS: Visit Provider Electrodiagnostic Medicine | DX: M25.511 Pain in right shoulder (principal) | CPT/HCPCS: 97110; 97161 ==

== ENCOUNTER 2025-06-24 08:35 | Outpatient (CLI) | payer MEDICARE, OTHER, SELFPAY ==
--- NOTE | 2025-06-24 08:43 | FL_ITS ---
WS: [email or web address] Modified barium swallow, 06/24/2025 Clinical Data: Other dysphagia Comparison: None. Fluoroscopy time: 1min [id number] # of spot films: Findings: The patient initiated swallowing normally with minimal premature spillage with thin liquids. There is minimal hypopharyngeal pooling which did clear with swallowing. There was a posterior indentation at C4-C5 which represents soft tissue or muscle indentation. No aspiration or penetration occurred. The barium tablet moved normally from the oropharynx, hypopharynx and then the esophagus with prompt passage into the stomach. FL/FL barium swallow modifd [id number] Impression: 1. No aspiration or penetration. 2. Soft tissues posterior indentation at C4-C5 on the hypopharynx which did not disturb flow.
== END 2025-06-24 08:36 | disposition home or self-care (01) ==
LOC: RAD 08:39
PROVIDERS: Visit Provider Electrodiagnostic Medicine
DX: R13.10 Dysphagia, unspecified (principal); R93.2 Abnormal findings on diagnostic imaging of liver and biliary tract
CPT/HCPCS: 74230; 92611